=== PATIENT | male | born 1990 | race African-American/Black ===

== ENCOUNTER 2025-01-16 10:38 | Emergency (ER) | payer OTHER ==
--- OUTSIDE RECORDS SUMMARY | 2025-01-16 10:41 | XMS REPORT | Continuity of Care Document ---
Author Name Unknown Address [address] [place] [address] Organization [facility] [place] Address [address] [place] [address] Care Team Providers Care Employee Relations Representative Name Role Phone PCP, PATIENT DOES NOT HAVE A Primary Care Physic sandy Unavailable YULI RODRIGUES Attending Clinician Unavailable Yuli Rodrigues MD Attending Clinician [phone] NEAL HOUGH Attending Clinician Unavailable Neal Hough NP Attending Clinician [phone] KARINA SALGADO Attending Clinician Unavailable Karina Salgado MD Attending Clinician [phone] Doctor Unassigned, [employer] Attending Clinician U navailable CARMELA Attending Clinician Unavailable NEAL HOUGH Admitting Clinician Unavailable KARINA SALGADO Admitting Clinician Unavailable CARMELA Admitting Clinician Unavailable Payers Payer Name Policy Type Policy Number Effective Date Expirati on Date Source [facility] [id number] 2023 00:00:00 Allergies, Adverse Reactions, Alerts Allergy Name Allergy Type Status Severity Reaction(s) Onset Date Inactive Date Treating Clinician Comments Source NO KNOWN ALLERGIE S Drug Class Active [facility] Social History Social Habit Start Date Stop Date Quantity Comments Source Sexual orientation [facility] Sex assigned at 1990 00:00:00 1990 00:00:00 [facility] Smoking Status Start Date Stop Date Source Tobacco smoking consumption unknown [facility] Medications Ordered Medication Name Filled Medication Name Start Date Stop Date Current Medication? Ordering Clinician Indication Dosage Frequency Signature (SIG) Comments Components Source ceFAZolin (ANCEF) injection 1,000 mg 03-05 01:30: 00 03-05 01:43 :00 No 1000mg 1,000 mg, Intramuscu lar, ONCE, 1 dose, On Sun03/04/24 at 2030, WAYNE, Reason for Anti-Infec tive: Documented Infection, Documented Infection Site: Skin / Soft Tissue, Duration of Therapy: Once (ED) [facility] cephALEXin 500 mg capsule 03-04 00:00: 00 Yes [id number] 500mg Take 1 capsule by mouth 4 (four) times daily. [facility] sulfamethox azole-trime thoprim 800-160 mg per tablet 03-04 00:00: 00 Yes [id number] 1{tbl} Take 1 tablet by mouth every 12 (twelve) hours. [facility] ibuprofen (IBU) tablet 800 mg 2022-10 04:15: 00 09-22 04:32 :00 No [id number] 800mg 800 mg, Oral, ONCE, 1 dose, On Sun09/21/23 at 2215, WAYNE [facility] cephALEXin (KEFLEX) capsule 500 mg 2022-10 04:15: 00 09-22 04:32 :00 No [id number] 500mg 500 mg, Oral, ONCE, 1 dose, On Sun09/21/23 at 2215, WAYNE
Re ason for Anti-Infec tive: Documented Infection< br>Documen kenroy Infection Site: Skin / Soft Tissue
Duration of Therapy: Other (see Comments) [facility] sulfamethox azole-trime thoprim (BACTRIM DS) 800-160 mg per tablet 1 tablet 2022-10 04:15: 00 09-22 04:32 :00 No [id number] 1{tbl} 1 tablet, Oral, ONCE, 1 dose, On Sun09/21/23 at 2215, WAYNE
Re ason for Anti-Infec tive: Documented Infection< br>Documen kenroy Infection Site: Skin / Soft Tissue
Duration of Therapy: Other (see Comments) [facility] ibuprofen 800 mg tablet 2022-10 00:00: 00 Yes [id number] 800mg Take 1 tablet by mouth every 6 (six) hours as needed for Pain (scale 1-3) or Pain (scale 4-6). [facility] cephALEXin 500 mg capsule 2022-10 00:00: 00 09-29 05:59 :00 No [id number] 500mg Take 1 capsule by mouth 4 (four) times daily for 7 days. [facility] predniSONE (DELTASONE) tablet 40 mg 2022-10 19:30: 00 09-03 19:04 :00 No 40mg 40 mg, Oral, ONCE NOW, 1 dose, On Sun09/03/23 at 1330, WAYNE [facility] ibuprofen (IBU) tablet 800 mg 2022-10 19:00: 00 09-03 19:04 :00 No 800mg 800 mg, Oral, ONCE, 1 dose, On Sun09/03/23 at 1300, WAYNE [facility] meloxicam 15 mg tablet 2022-10 00:00: 00 Yes [id number] 15mg Take 1 tablet by mouth in the morning. [facility] predniSONE 20 mg tablet 2022-10 00:00: 00 Yes [id number] Take 2 tablets PO daily [facility] ranitidine (ZANTAC) 150 mg tablet 04-06 00:00: 00 Yes [id number] 150mg Take 1 tablet by mouth 2 (two) times daily. Follow up with your MD for further evaluation and treatment. [facility] ondansetron (ZOFRAN ODT) 4 mg disintegrat ing tablet 04-06 00:00: 00 Yes [id number] 4mg Take 1 tablet by mouth every 8 (eight) hours as needed for Nausea and Vomiting (N/V). [facility] famotidine 20 mg tablet 01-26 00:00: 00 Yes [id number] 20mg Take 1 tablet by mouth 2 (two) times daily. [facility] traMADOL 50 mg tablet 01-26 00:00: 00 Yes [id number] 50mg Take 1 tablet by mouth every 6 (six) hours as needed (pain). [facility] proMETHazin e 25 mg tablet 01-26 00:00: 00 Yes [id number] 25mg Take 1 tablet by mouth every 6 (six) hours as needed for Nausea and Vomiting (N/V). [facility] Vital Signs Vital Name Observation Time Observation Value Comments S virgil Respiratory rate 2024-03-05 01:49:00 16 /min [facility] Oxygen saturation in Arterial blood by Pulse oximetry 2024-03-05 01:49:00 100 /min [facility] Systolic blood pressure 2024-03-05 01:49:00 129 mm[Hg] [facility] Diastolic blood pressure 2024-03-05 01:49:00 89 mm[Hg] [facility] Heart rate 2024-03-05 01:49:00 86 /min [facility] Body temperature 2024-03-05 01:49:00 36.94 Alanis [facility] Body height 2024-03-05 00:22:00 182.9 cm [facility] Body weight 2024-03-05 00:22:00 94.666 kg [facility] BMI 2024-03-05 00:22:00 28.30 kg/m2 [facility] Systolic blood pressure 2023-09-22 06:00:00 149 mm[Hg] [facility] Diastolic blood pressure 2023-09-22 06:00:00 96 mm[Hg] [facility] Heart rate 2023-09-22 06:00:00 81 /min [facility] Respiratory rate 2023-09-22 06:00:00 18 /min [facility] Oxygen saturation in Arterial blood by Pulse oximetry 2023-09-22 06:00:00 98 /min [facility] Body temperature 2023-09-22 03:24:00 37.22 Alanis [facility] Body height 2023-09-22 03:24:00 182.9 cm [facility] Body weight 2023-09-22 03:24:00 104.327 kg [facility] BMI 2023-09-22 03:24:00 31.19 kg/m2 [facility] Systolic blood pressure 2023-09-03 19:00:00 137 mm[Hg] [facility] Diastolic blood pressure 2023-09-03 19:00:00 89 mm[Hg] [facility] Heart rate 2023-09-03 19:00:00 89 /min [facility] Body temperature 2023-09-03 19:00:00 36.89 Alanis [facility] Respiratory rate 2023-09-03 19:00:00 16 /min [facility] Body height 2023-09-03 19:00:00 182.9 cm [facility] Body weight 2023-09-03 19:00:00 108.863 kg [facility] BMI 2023-09-03 19:00:00 32.55 kg/m2 [facility] Oxygen saturation in Arterial blood by Pulse oximetry 2023-09-03 19:00:00 96 /min [facility] Procedures Procedure Date / Time Performed Performing Clinicia n Source INCISION AND DRAINAGE 2023-09-22 05:33:38 Angela Hough [facility] ASSIGNMENT OF BENEFITS 2023-09-22 04:10:50 Docnell r Unassigned, [employer] [facility] CONSENT/REFUSAL FOR DIAGNOSIS AND TREATMENT 2023-09-22 03:09:07 Doctor Unassigned, [employer] [facility] ASSIGNMENT OF BENEFITS 2023-09-03 19:52:16 Docto r Unassigned, [employer] [facility] CT MAXILLOFACIAL/MANDIBLE WO CONTRAST 2023-09-03 19:31:02 Karina Salgado [facility] CT HEAD WO CONTRAST 2023-09-03 19:31:02 Kuldeep Salgado [facility] NOTICE OF PRIVACY PRACTICES 2023-09-03 18:28:33 Doctor Unassigned, [employer] [facility] CONSENT/REFUSAL FOR DIAGNOSIS AND TREATMENT 2023-09-03 18:27:41 Doctor Unassigned, [employer] [facility] Encounters Start Date/Time End Date/Time Encounter Type Admission Type Attending Clinicians Care Facility Care Department Encounter ID Source 2024-03-04 19:24:00 2024-03-04 21:11:00 Emergency X YULI RODRIGUES [facility] ERT [id number] [facility] 2024-03-04 19:24:00 2024-03-04 21:11:00 Emergency Yuli Rodrigues [facility] [id number] [facility] 2023-09-21 21:27:00 2023-09-22 00:06:00 Emergency X NEAL HOUGH [facility] ERT [id number] [facility] 2023-09-21 21:27:00 2023-09-22 00:06:00 Emergency Neal Hough G [facility] [id number] [facility] 2023-09-03 13:02:00 2023-09-03 14:18:00 Emergency X KARINA SALGADO [facility] ERT [id number] [facility] 2023-09-03 13:02:00 2023-09-03 14:18:00 Emergency Yordan Salgados [facility] [id number] [facility] 2023-09-03 00:00:00 2023-09-03 00:00:00 Orders Only Doctor Unassigned, [employer] [facility] [id number] [facility] 2022-05-10 02:31:00 2022-05-10 02:31:00 Outpatient [facility] [id number] María Elena byrd [facility] Program Notes Date/Time Note Provider Source 2024-03-04 21:06:39 Pt given printed and verbal discharge instructions regarding cellulitis of left leg, uncontrolled HTN. Prescriptions provided x2 Discussed antibiotic therapy and to take until all completed unless adverse reaction occurs - if occurs, discontinue medication and follow up with pcp/seek medical attention Pt verbalized understanding of instructions, pt awake alert oriented, resp reg unlabored, skin w/d, color appropriate for race, moves all ext well,pt encouraged to follow up with pcp. Advised to seek medical attention for new/prolonged/worsening of symptoms. No adverse reaction to meds given in ER noted upon discharge Awake, alert oriented, resp reg unlabored, skin w/d, pt leaving amb with steady gait, in no apparent distress. Alissa Sears RN [facility] 2024-03-04 19:20:56 Patient arrived ambulatory to ED c/o left haroldo swelling that started hurting last night. Patient has scab on LLE. 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 Jolly Rocha RN [facility]
[2025-01-16 11:20] LABS: Absolute Basophils 0.1 K/uL (0-0.5); Absolute Lymphocytes (CBC) 1.9 K/uL (0.7-4.9); Absolute Monocytes 0.5 K/uL (0.1-1.3); Absolute Neutrophil 3.8 K/uL (1.8-8.0); Basophils % 1.1 % (0-1.3); Eosinophils % 0.7 % (0-4.4); Hemoglobin 13.8 g/dL (13.6-17.9); Lymphocytes % 29.7 % (15.3-44.8); MCH 27.1 pg (27.0-35.0); MCHC 33.6 g/dL (32.0-36.0); MCV 80.7 fL (80-100); MPV 8.9 fL (7.6-11.3); Monocytes % 7.5 % (3.3-12.3); Nucleated Red Blood Cells % 0.1 % (0-0); Platelets 243 thou/uL (152-406); RBC Red Blood Cell Count 5.08 M/uL (4.33-5.43); Red Cell Distribution Width 14.4 % (12.1-15.2)
[2025-01-16 11:36] LABS: ALT/SGPT 34 U/L (16-61); AST/SGOT 17 U/L (15-37); Albumin 3.5 g/dL (3.4-5.0); Albumin/Globulin Ratio 0.9 (1.1-1.8); Alkaline Phosphatase 100 U/L (45-117); Anion Gap 5.8 mEq/L (5.0-15.0); BUN Blood Urea Nitrogen 12 mg/dL (7-18); Bicarbonate 30 mEq/L (21-32); Bilirubin Total 0.3 mg/dL (0.2-1.0); Globulin 4.1 g/dL (2.3-3.5); Glomerular Filtration Rate 95 ml/min (=/>90); Glucose Level 95 mg/dL (74-106); Potassium 3.8 mEq/L (3.5-5.1); Protein, Total 7.6 g/dL (6.4-8.2); Sodium Level 137 mEq/L (136-145)
[2025-01-16 11:48] LABS: Bilirubin Direct < 0.2 mg/dL (0-0.2); Bilirubin Indirect, Calculated 0.1 mg/dL (0.2-0.8)
[2025-01-16 13:10] LABS: Sqamous Epithelial None Seen /HPF (None Seen); Urine Bacteria None Seen /HPF (<20); Urine Bilirubin NEGATIVE (Negative); Urine Blood Negative (Negative); Urine Clarity Clear (Clear); Urine Color Light-Yellow (Yellow); Urine Culture Reflex Order NOT NEEDED; Urine Glucose NEGATIVE (Negative); Urine Ketones NEGATIVE (Negative); Urine Microscopic Reflex YN ORDER UMIC; Urine Nitrite NEGATIVE (Negative); Urine Protein NEGATIVE (Negative); Urine RBC None Seen /HPF (None Seen); Urine Urobilinogen Normal (Normal); Urine WBC <5 /HPF (<5)
[2025-01-16 13:12] LABS: Barbiturates NEGATIVE (NEGATIVE); Benzodiazepines POSITIVE (NEGATIVE); Cocaine NEGATIVE (NEGATIVE); METHAMPHETAM POSITIVE (NEGATIVE); Methadone NEGATIVE (NEGATIVE); Opiates NEGATIVE (NEGATIVE); Phencyclidine POSITIVE (NEGATIVE); THC Cannibis POSITIVE (NEGATIVE)
[2025-01-16] MEDS ORDERED: DOXYCYCLINE 100 MG CAP PO ONE (14:07)
--- NOTE | 2025-01-16 14:10 | EDPHYS ---
Physician Documentation [facility] Name: Estuardo Nova Age: 34 yrs Sex: Male : 1990 Arrival Date: 01/16/2025 Time: 10:38 Bed 4 Private MD: ED Physician Sho Vega HPI: 01/16 13:28 This 34 yrs old Black Male presents to ER via EMS with complaints of Wound Check - gb1 drowsy. 13:28 34-year-old -[place] male brought in by custody from group home that is more drowsy gb1 than he was when they detained him. He has history of hypertension and seizures. He was arrested for trespassing earlier today and has a wound to the right forearm that appears red and inflamed.. Historical: - Allergies: 12:57 No Known Allergies; ap3 - PMHx: 10:55 Hypertensive disorder; Seizure; ap3 - Immunization history:: Adult Immunizations unknown. - Infectious Disease History:: unknown. - Social history:: Smoking status: unknown. Exam: 13:28 Constitutional: Patient initially is drowsy but not lethargic. He is arousable Eyes: gb1 Pupils equal round and reactive to light, extra-ocular motions intact. Lids and lashes normal. Conjunctiva and sclera are non-icteric and not injected. Cornea within normal limits. Periorbital areas with no swelling, redness, or edema. ENT: Nares patent. No nasal discharge, no septal abnormalities noted. Tympanic membranes are normal and external auditory canals are clear. Oropharynx with no redness, swelling, or masses, exudates, or evidence of obstruction, uvula midline. Mucous membranes moist. Neck: Trachea midline, no thyromegaly or masses palpated, and no cervical lymphadenopathy. Supple, full range of motion without nuchal rigidity, or vertebral point tenderness. No Meningismus. Chest/axilla: Normal chest wall appearance and motion. Nontender with no deformity. No lesions are appreciated. Cardiovascular: Regular rate and rhythm with a normal S1 and S2. No gallops, murmurs, or rubs. Normal PMI, no JVD. No pulse deficits. Respiratory: Lungs have equal breath sounds bilaterally, clear to auscultation and percussion. No rales, rhonchi or wheezes noted. No increased work of breathing, no retractions or nasal flaring. Abdomen/GI: Soft, non-tender, with normal bowel sounds. No distension or tympany. No guarding or rebound. No evidence of tenderness throughout. 14:12 Musculoskeletal/extremity: Patient has a 1-1/2 inch x 1 inch fluctuant indurated mass gb1 on the volar aspect of the distal right forearm.. Vital Signs: 10:52 BP 142 / 100; Pulse 83; Resp 18; Pulse Ox 98% on R/A; Weight 102.06 kg; ap3 11:37 BP 133 / 96; Pulse 85; Resp 17; Pulse Ox 99% on R/A; Pain 0/10; ss 12:38 BP 142 / 98; Pulse 80; Resp 17; Pulse Ox 100% on R/A; Pain 0/10; ap3 13:28 BP 139 / 92; Pulse 88; Pulse Ox 100% on R/A; ap3 14:27 Temp 97.6(TE); ss 11:37 Pain Scale: Adult ss 12:38 Pain Scale: Adult ap3 Procedures: 14:12 I \T\ D: Incision and drainage was performed for an abscess of the right Prepped with gb1 Betadine, Anesthetized with nothing. Incised with #11 blade. Drained large amount purulent fluid. bloody fluid. Packed with iodoform gauze, Dressing: non-Adherent dressing, the patient tolerated the procedure well. MDM: 10:44 Medical Screening Exam initiated gb1 13:28 Data reviewed: vital signs, nurses notes, lab test result(s), CBC, electrolytes, urine gb1 drug screen. 01/16 11:00 Order name: Basic Metabolic Panel; Complete Time: 12:05 3 01/16 11:00 Order name: CBC with Diff; Complete Time: 12:05 ap3 01/16 11:00 Order name: Urinalysis w/ reflexes; Complete Time: 13:51 ap3 01/16 11:00 Order name: Urine Culture ap3 01/16 11:00 Order name: Urine Drug Screen; Complete Time: 13:51 ap3 01/16 11:01 Order name: LFT's; Complete Time: 12:05 gb1 Administered Medications: 14:26 Drug: Doxycycline PO 100 mg PO once Route: PO; ss 14:28 Follow up: Response: Medication Administered at Departure ss Disposition Summary: 01/16/25 14:10 Discharge Ordered Notes: Location: Home gb1 Condition: Fair gb1 Diagnosis - Cutaneous abscess of right upper limb gb1 - Adverse effect of unspecified psychotropic drug, initial encounter gb1 Followup: gb1 - With: Private Physician - When: - Reason: Continuance of care Discharge Instructions: - Discharge Summary Sheet gb1 - Skin Abscess gb1 - Incision and Drainage, Care After gb1 Forms: - Medication Reconciliation Form gb1 - Antibiotic Education gb1 - Prescription Opioid Use gb1 - Patient Portal Instructions gb1 - Leadership Thank You Letter gb1 Prescriptions: - Doxycycline Hyclate 100 mg Oral Tablet - take 1 tablet ORAL route every 12 hours; 20 tablet; Refills: 0, Product gb1 Selection Permitted Signatures: Dispatcher [employer] Felicita Headley RN RN ss Prokisch, Amanda, RN RN ap3 Sho Vega MD MD gb1
--- NOTE | 2025-01-16 14:10 | ER ---
Nurse's Notes [facility] Name: Estuardo Nova Age: 34 yrs Sex: Male : 1990 Arrival Date: 01/16/2025 Time: 10:38 Bed 4 Private MD: Diagnosis: Cutaneous abscess of right upper limb;Adverse effect of unspecified psychotropic drug, initial encounter Presentation: 01/16 10:52 Chief complaint: EMS states: they were called by PD for a wound to the right forearm. ap3 upon transport patient was noted to be drowsy. PD at bedside reports patient had become more drowsy while in custody. Coronavirus screen: At this time, the client does not indicate any symptoms associated with coronavirus-19. Ebola Screen: No symptoms or risks identified at this time. Initial Sepsis Screen: Does the patient meet any 2 criteria? No. Patient's initial sepsis screen is negative. Does the patient have a suspected source of infection? No. Patient's initial sepsis screen is negative. Risk Assessment: Do you want to hurt yourself or someone else? Patient reports no desire to harm self or others. Onset of symptoms is unknown. Care prior to arrival: IV initiated. 20 GA, in the left forearm. 10:52 Method Of Arrival: EMS: [facility] ap3 10:52 Acuity: ROSEMARY 2 ap3 Triage Assessment: 10:55 General: Appears in no apparent distress. Behavior is drowsy. Pain: Denies pain. Neuro: ap3 Level of Consciousness is lethargic, Oriented to person, place, time, situation, when woken with painful stimuli . Cardiovascular: Patient's skin is warm and dry. Respiratory: Airway is patent Respiratory effort is even, unlabored, Respiratory pattern is regular, symmetrical. Derm: Wound noted palmar aspect of right forearm. Historical: - Allergies: 12:57 No Known Allergies; ap3 - PMHx: 10:55 Hypertensive disorder; Seizure; ap3 - Immunization history:: Adult Immunizations unknown. - Infectious Disease History:: unknown. - Social history:: Smoking status: unknown. Screenin:57 Abuse screen: Denies threats or abuse. Nutritional screening: No deficits noted. ap3 Tuberculosis screening: No symptoms or risk factors identified. 12:56 [facility] ED Fall Risk Assessment (Adult) History of falling in the last 3 months, ap3 including since admission No falls in past 3 months (0 pts) Confusion or Disorientation No (0 pts) Intoxicated or Sedated Yes (3 pts) Impaired Gait Yes (1 pt) Mobility Assist Device Used No (0 pt) Altered Elimination No (0 pt) Score/Fall Risk Level 3 or more points = High Risk Oriented to surroundings, Maintained a safe environment, Educated pt \T\ family on fall prevention, incl call for assistance when getting out of bed, Assessed \T\ reinforced patient's understanding of fall precautions, Hourly rounding (assess needs \T\ fall precautionary measures) done, Used ambulatory aids as needed (educated on \T\ assisted with), Implemented a Fall Risk Plan of Care, Remained w/in arm's length of patient and in sight while toileting, Remained with patient while ambulating, Utilized family, sitter, or virtual social work job titles as indicated. Assessment: 12:38 Reassessment: Patient and/or family updated on plan of care and expected duration. Pain ap3 level reassessed. Patient is alert, oriented x 3, equal unlabored respirations, skin warm/dry/pink. General: Appears comfortable, Behavior is cooperative. Pain: Denies pain. 14:27 Reassessment: Patient appears in no apparent distress at this time. PT is more alert to ss verbal stimuli Patient states symptoms have improved. Vital Signs: 10:52 BP 142 / 100; Pulse 83; Resp 18; Pulse Ox 98% on R/A; Weight 102.06 kg; ap3 11:37 BP 133 / 96; Pulse 85; Resp 17; Pulse Ox 99% on R/A; Pain 0/10; ss 12:38 BP 142 / 98; Pulse 80; Resp 17; Pulse Ox 100% on R/A; Pain 0/10; ap3 13:28 BP 139 / 92; Pulse 88; Pulse Ox 100% on R/A; ap3 14:27 Temp 97.6(TE); ss 11:37 Pain Scale: Adult ss 12:38 Pain Scale: Adult ap3 ED Course: 10:41 Patient arrived in ED. ty 10:42 Sho Vega MD is Attending Physician. gb1 10:51 Melanie Marcus, RN is Primary Nurse. ap3 10:55 Triage completed. ap3 10:57 Police to see patient. ap3 10:57 Arm band placed on right wrist. ap3 10:57 Client placed on continuous cardiac and pulse oximetry monitoring. NIBP monitoring ap3 applied. quality assurance monitor body on. Pulse ox on. NIBP on. 12:56 Speci-cath kit inserted, using sterile technique, 14 Fr., specimen obtained. ap3 12:56 Urinalysis w/ reflexes Sent. ap3 12:56 Urine Culture Sent. ap3 12:56 Urine Drug Screen Sent. ap3 12:57 Patient has correct armband on for positive identification. Bed in low position. Call ap3 light in reach. Side rails up X2. Adult w/ patient. PD at bedside. 12:57 Provided Education on: straight cath education. ap3 14:27 Assist provider with I \T\ D: of an abscess on right forearm Set up I\T\D tray. Performed ss by Sho Vega MD Wound packed. iodoform gauze, Dressing with 4X4s, ANNIE WRAP Patient tolerated well. IV discontinued, intact, bleeding controlled, No redness/swelling at site. Pressure dressing applied. Administered Medications: 14:26 Drug: Doxycycline PO 100 mg PO once Route: PO; 14:28 Follow up: Response: Medication Administered at Departure Medication: 12:57 VIS not applicable for this client. ap3 Outcome: 14:10 Discharge ordered by . gb1 14:27 Discharged to Law Enforcement 14:27 Condition: improved 14:27 Discharge instructions given to patient, police, Instructed on discharge instructions, follow up and referral plans. medication usage, Demonstrated understanding of instructions, follow-up care, medications, wound care, Prescriptions given X 1, 14:28 Patient left the ED. ss Signatures: Felicita Lockhart RN RN Melanie Marcus RN RN ap3 Sho Vega MD MD gb1 Brandin Patino
[2025-01-16 14:35] VITALS: O2SAT 100
[2025-01-16 14:36] VITALS: BP 139/92
[2025-01-16 14:37] VITALS: TEMP 97.6
== END 2025-01-16 14:28 | disposition home or self-care (01) ==
LOC: ER 10:38
PROC: 0H9DXZZ Drainage of Right Lower Arm Skin, External Approach (ICD-10-PCS; principal; 2025-01-16)
DX: L02.413 Cutaneous abscess of right upper limb (principal); T43.95XA Adverse effect of unspecified psychotropic drug, initial encounter
CPT/HCPCS: 36415; 80048; 80076; 80307; 81001; 85025; 87086; 87088; 99285